=== PATIENT | female | born 1970 | race Caucasian/White ===

== ENCOUNTER → 2018-10-29 | Outpatient (REF) | payer OTHER ==
[~2018-10-29] MED LIST: BACTRIM DS1 TAB PO; BUPROPION150 M1 PO; CELEXA20 M1 OR; CIPRODEX1 ML OT; CYMBALTA60 MG PO; EPIPEN 2-PAK0.3 MG IM; HYDROXYZINE HCL25 MG OR; KEFLEX500 MG PO; LORTAB 7.5 PO; Levaquin PO; MEDDOSEPAK OR; NYSTATIN100000 M4 TOP; PRISTIQ100 MG PO; RANITIDINE300 M1 PO; SIMVASTATIN20 MG OR; SINGULAIR PO; [UNRECOGNIZED DRUG - REMARK]
[2018-10-29 10:23] LABS: HEMATOCRIT 39.9 % (37.0-47.0); HEMOGLOBIN 12.6 g/dl (12.0-16.0); MEAN CELL VOLUME 85.4 fL CALC (80.0-100.0); MEAN CORPUSCULAR HGB CONC 31.6 g/L CALC (32.0-36.0); RED BLOOD COUNT 4.67 mill/uL (4.20-5.60); RED CELL DISTRI WIDTH 13.6 % (11.5-15.5)
[2018-10-29 10:48] LABS: ALBUMIN 4.3 g/dL (3.2-5.0); ALKALINE PHOSPHATASE 69 u/l (38-126); ANION GAP 16 (6-22 (CALC)); BILIRUBIN, TOTAL 0.3 mg/dL (0.0-1.4); BUN 17 mg/dL (7-17); BUN/CREATININE RATIO 34 (12-20 (CALC)); CARBON DIOXIDE 26 mmol/l (22-30); CHLORIDE 102 mmol/l (95-108); CHOLESTEROL HDL RATIO 7.4 (<4.4 (CALC)); CREATININE 0.5 mg/dL (0.5-1.0); GFR > 60 ML/MIN (>=60 (CALC)); GFR FOR AFR.AMER. > 60 ML/MIN (>=60 (CALC)); HDL CHOLESTEROL 34 mg/dL (>=40); POTASSIUM 4.8 mmol/l (3.5-5.1); SGOT/AST 23 u/l (14-36); SODIUM 140 mmol/l (137-146); TOTAL CHOLESTEROL 250 mg/dl (0-199); TOTAL PROTEIN 7.5 g/dL (6.3-8.2)
[2018-10-29 10:59] LABS: VLDL CHOLESTROL 183 mg/dl (1-41 (CALC))
[2018-10-29 11:05] LABS: CALCULATED LDLCHOLESTEROL 33 mg/dL (62-129 (CALC)); TOTAL TRIGLYCERIDES 913 mg/dl (30-149)
== END | disposition home or self-care (01) | DRG 639 ==
LOC: LAB 08:57
PROVIDERS: ATTEND Nurse Practitioner Adult Health
DX: E11.69 Type 2 diabetes mellitus with other specified complication (principal); E78.1 Pure hyperglyceridemia; E78.2 Mixed hyperlipidemia

== ENCOUNTER 2020-07-30 23:09 | Emergency (ER) | payer BC ==
[~2020-07-30] VITALS: Ht 162.6 cm; Wt 114.0 kg
[2020-07-30] MEDS ORDERED: FENOFIBRATE145 MG PO (23:41)
[2020-07-30] MEDS ORDERED: METFORMIN HCL1000 MG PO (23:41)
[2020-07-30] MEDS ORDERED: VENLAFAXINE HCL75 M1 PO (23:42)
[2020-07-30] MEDS ORDERED: LOSARTAN POTASS25 MG PO (23:42)
[2020-07-30] MEDS ORDERED: BASAGLAR K100 UNIT/M SC (23:43)
[2020-07-31 00:17] VITALS: BP 130/68
[2020-07-31 00:18] LABS: HEMOGLOBIN 12.3 g/dl (12.0-16.0); IMMATURE GRANULOCYTES 0.6 % (0.0-5.0); MEAN CELL VOLUME 81.9 fL CALC (80.0-100.0); MEAN CORPUSCULAR HGB 25.8 pG CALC (26.0-32.0); MEAN CORPUSCULAR HGB CONC 31.5 g/dL CAL (32.0-36.0); NEUT# 3.18 thou/uL (2.00-7.15); RED BLOOD COUNT 4.76 mill/uL (4.20-5.60); RED CELL DISTRI WIDTH 14.2 % (11.5-15.5)
[2020-07-31 00:20] LABS: ALKALINE PHOSPHATASE 71 u/l (38-126); ANION GAP 14 (6-22 (CALC)); BILIRUBIN, TOTAL 0.3 mg/dL (0.0-1.4); BUN 15 mg/dL (7-17); BUN/CREATININE RATIO 30 (12-20 (CALC)); C-REACTIVE PROTEIN 3.3 mg/dL (0-0.9); CARBON DIOXIDE 24 mmol/l (22-30); CHLORIDE 103 mmol/l (95-108); CREATININE 0.5 mg/dL (0.5-1.0); GFR > 60 ML/MIN (>=60 (CALC)); GFR FOR AFR.AMER. > 60 ML/MIN (>=60 (CALC)); POTASSIUM 3.8 mmol/l (3.5-5.1); SGOT/AST 27 u/l (14-36); SODIUM 137 mmol/l (137-146)
[2020-07-31 00:22] LABS: ALBUMIN 3.9 g/dL (3.2-5.0)
== END 2020-07-31 01:01 | disposition home or self-care (01) | DRG 179 ==
LOC: ED 23:09
PROVIDERS: Family Medicine
DX: U07.1 COVID-19 (principal); R50.9 Fever, unspecified; M79.10 Myalgia, unspecified site; M25.50 Pain in unspecified joint; E11.9 Type 2 diabetes mellitus without complications; I10 Essential (primary) hypertension; F17.200 Nicotine dependence, unspecified, uncomplicated